=== PATIENT | female | born 1995 | race Caucasian/White ===

== ENCOUNTER 2022-05-15 12:19 | Outpatient (CLI) | payer OTHER ==
[2022-05-16] MEDS ORDERED: LEVOTHYROXINE25 MCG PO (15:26)
[2022-05-16] MEDS ORDERED: CHILDREN'S ASPI81 MG PO (15:26)
[2022-05-16] MEDS ORDERED: IRON325 MG PO (15:26)
[2022-05-16] MEDS ORDERED: LOVENOX40 MG/0.4 SUBCUTANEO (15:26)
[2022-05-16] MEDS ORDERED: PRENATAL TABLE1 EAC1 PO (15:27)
== END 2022-05-15 12:56 | disposition home or self-care (01) ==
LOC: NST 12:19
PROVIDERS: ATTEND Obstetrics & Gynecology
DX: Z34.83 Encounter for supervision of other normal pregnancy, third trimester (principal)

== ENCOUNTER 2022-05-16 13:39 | Inpatient (IN) | payer OTHER ==
[~2022-05-16] VITALS: Ht 157.5 cm; Wt 80.3 kg
[2022-05-16] MEDS ORDERED: LOVENOX40 MG/0.4 SUBCUTANEO (15:26)
[2022-05-16] MEDS ORDERED: CHILDREN'S ASPI81 MG PO (15:26)
[2022-05-16] MEDS ORDERED: LEVOTHYROXINE25 MCG PO (15:26)
[2022-05-16] MEDS ORDERED: IRON325 MG PO (15:26)
[2022-05-16] MEDS ORDERED: PRENATAL TABLE1 EAC1 PO (15:27)
== END 2022-05-20 13:05 | disposition home or self-care (01) | DRG 788 ==
LOC: LDR 13:39 → OB/GYN 05-17 11:43 → LDR 05-17 14:24 → OB/GYN 05-18 09:03
PROVIDERS: ADMIT Obstetrics & Gynecology Gynecology; ATTEND Obstetrics & Gynecology Gynecology
PROC: 3E0P7VZ Introduction of Hormone into Female Reproductive, Via Natural or Artificial Opening (ICD-10-PCS; 2022-05-16)
PROC: 4A1HXCZ Monitoring of Products of Conception, Cardiac Rate, External Approach (ICD-10-PCS; 2022-05-16)
PROC: 3E033VJ Introduction of Other Hormone into Peripheral Vein, Percutaneous Approach (ICD-10-PCS; 2022-05-17)
PROC: 10D00Z1 Extraction of Products of Conception, Low, Open Approach (ICD-10-PCS; principal; 2022-05-17 11:45)
DX: O61.0 Failed medical induction of labor (principal); O14.04 Mild to moderate pre-eclampsia, complicating childbirth; Z3A.38 38 weeks gestation of pregnancy; Z37.0 Single live birth; Z20.822 Contact with and (suspected) exposure to COVID-19